=== PATIENT | male | born 1930 | race Caucasian/White ===

== ENCOUNTER → 2019-03-31 | Outpatient (CLI) | payer OTHER ==
[~2019-03-31] MED LIST: ACET325C3 PO; ASPI-1146 PO; BRIM5DRO OU; DORZ10DR9 OU; FERR159T2 PO; FISH1CAP27 PO; FOLI20CA PO; LATA2.5D2 OU; LEVO75TA10 PO; LORA10TA7 PO; METO25TA6 PO; MULT-950 PO; NITR0.4T SL; SIMV40TA59 PO; TRAZ-187 PO; UBID100C10 PO; vit b6 PO; vit d3 PO
== END | disposition home or self-care (01) ==
LOC: RAH 16:08
PROVIDERS: ATTEND Physical Medicine & Rehabilitation
DX: M54.12 Radiculopathy, cervical region (principal); M25.78 Osteophyte, vertebrae
CPT/HCPCS: 72052

== ENCOUNTER → 2019-04-27 | Outpatient (CLI) | payer OTHER | END | disposition home or self-care (01) | LOC: RAH 14:33 | PROVIDERS: ATTEND Physical Medicine & Rehabilitation | DX: M47.22 Other spondylosis with radiculopathy, cervical region (principal); M50.10 Cervical disc disorder with radiculopathy, unspecified cervical region | CPT/HCPCS: 72141 ==